=== PATIENT | male | born 1985 | race Hispanic/Latino ===

== ENCOUNTER 2021-03-23 02:50 | Emergency (ER) | payer SELFPAY ==
--- NOTE | ~2021-03-23 | CT_ITS ---
EXAMINATION: CT abdomen pelvis wo con DATE: 03/23/2021 04:19 INDICATION: Right flank pain TECHNIQUE: Computed tomography (CT) of the abdomen and pelvis was performed without intravenous contr ast. The dose-length product was 189.17 mGy-cm. Automated exposure control and iterative reconstructi on technique were employed. COMPARISON: None. FINDINGS: Dependent atelectasis. No significant pleural or pericardial effusion. Heart size normal. N o significant vascular abnormality. The liver, spleen, pancreas, adrenal glands and kidneys are unremarkable. Gallbladder is present. Non obstructive bowel gas pattern. Normal appendix. No abnormal pelvic masses or fluid collections. No fr ee air or free fluid. There is degenerative disc disease at L5-S1 no acute osseous abnormality. Small fat-containing umbilical hernia. IMPRESSION: 1. No acute abdominal abnormality. Reviewed, dictated and finalized at location A.
[2021-03-23 03:23] VITALS: BP 117/72; PULSE 73; RESP 18; TEMP 36.4; O2SAT 99
[2021-03-23 03:43] LABS: Basophils Percent Auto 0.3 % (0.2-1.2); Eosinophils Absolute Auto 0.1 K/mm3 (0-0.3); Eosinophils Percent Auto 0.8 % (0-4.4); Hematocrit 43.4 % (42.0-52.0); Hemoglobin 14.1 g/dL (14.0-18.0); Immature Granulocyte Absolute 0.02 K/mm3 (0.00-0.031); Immature Granulocyte Percent A 0.2 % (0-0.5); Lymphocytes Absolute Auto 2.11 K/mm3 (0.9-3.2); Lymphocytes Percent Auto 23.4 % (18.3-44.2); Mean Corpuscular HGB Conc 32.5 g/dl (32-36); Mean Corpuscular Hemoglobin 29.9 pg (26-34); Mean Corpuscular Volume 91.9 fl (80-100); Mean Platelet Volume 9.8 fl (7.4-10.4); Monocytes Absolute Auto 0.7 K/mm3 (0.1-0.6); Monocytes Percent Auto 8.1 % (2.6-8.5); Neutrophils Absolute Auto 6.1 K/mm3 (1.3-6.7); Neutrophils Percent Auto 67.2 % (45.5-73.1); Platelet Count Result 207 k/mm3 (150-375); Red Blood Count 4.72 M/mm3 (4.6-6.20); Red Cell Distribution Width 12.9 % (11.5-14.5)
[2021-03-23 03:51] LABS: Anion Gap 4 mmol/L (8-16); Blood Urea Nitrogen 24 mg/dL (9-20); Calcium 8.9 mg/dL (8.4-10.2); Carbon Dioxide 28 mmol/L (22-30); Chloride 100 mmol/L (98-107); Estimated CRCL calculation 66 ml/min; Estimated Glomerular Filt Rate > 60; Glucose 98 mg/dL (65-110); Potassium 4.2 mmol/L (3.4-5.0); Sodium 132 mmol/L (137-145)
--- NOTE | 2021-03-23 04:53 | ED.BACK ---
HPI - Back Pain/Injury General Chief Complaint: Back Pain/Injury Stated Complaint: back pain Time Seen by Provider: 03/23/21 03:46 Source: patient History of Present Illness HPI Narrative: Patient presents with right-sided back pain which radiates to his abdomen. Symptoms been present for the past several hours. He reports he was sitting drinking a Coke when he developed this pain. Ports getting up and walking around seems to make his pain worse denies any urinary symptoms such as dysuria or hematuria. Denies any nausea or vomiting. Denies any prior abdominal surgeries. Related Data Home Medications Medication Instructions Recorded Confirmed No Home Medications 03/23/21 03/23/21 Allergies Allergy/AdvReac Type Severity Reaction Status Date / Time No Known Allergies Allergy Verified 03/23/21 03:27 Review of Systems Review of Systems: CONSTITUTIONAL: Denies fever, chills, or sweats. EYES: Denies visual changes, redness, or discharge. ENT: Denies rhinorrhea, congestion, sore throat, or otalgia. CARDIOVASCULAR: Denies chest pain, palpitations, or edema. RESPIRATORY: Denies cough or dyspnea. GASTROINTESTINAL: Denies abdominal pain, nausea, vomiting, or diarrhea. GENITOURINARY: Denies dysuria or hematuria. SKIN: Denies rash or itching. MUSCULOSKELETAL: Denies back pain, joint pain, or myalgia. NEUROLOGIC: Denies headache, numbness, dizziness, or weakness. PSYCHIATRIC: Denies anxiety or depression. All systems reviewed & are unremarkable except as noted in HPI and below PMFSH Social History Social History Gender identity (if verbalized by the patient): Male Exam Narrative: GENERAL: Well-appearing, well-nourished, and in no acute distress. HEAD: Normocephalic, atraumatic. EYES: PERRLA and EOMI. ENT: Nares clear, no rhinorrhea or epistaxis. Mucous membranes moist. NECK: Supple. No masses. No JVD CHEST: Clear to auscultation. No respiratory distress. No wheezes rales or rhonchi HEART: Regular rate and rhythm. No murmur heard. Normal peripheral pulses. ABDOMEN: Soft, nontender, nondistended BACK: Mild tenderness to palpation along the right paraspinal muscles around L1-L2 EXTREMITIES: Normal range of motion. No edema. SKIN: Warm, dry, no rash. NEURO: No focal deficits. Alert and oriented x3. PSYCH: Normal mood and affect. Course Reevaluation(s) Reevaluation #1: Patient reports feeling much improved results and plan reviewed with patient he is comfortable with the outpatient plan. Date: 03/23/21 Time: 06:36 Vital Signs Vital signs: Vital Signs Temperature 36.4 C L 03/23/21 03:23 Pulse Rate 73 03/23/21 03:23 Respiratory Rate 18 03/23/21 03:23 Blood Pressure 117/72 03/23/21 03:23 Pulse Oximetry 99 03/23/21 03:23 Temperature 36.4 C L 03/23/21 03:23 Pulse Rate 75 03/23/21 05:57 Respiratory Rate 18 03/23/21 05:57 Blood Pressure 120/74 03/23/21 05:57 Pulse Oximetry 99 03/23/21 05:57 MDM - Back Pain/Injury MDM Narrative Medical decision making narrative: H&P as above, vss, pt looks clinically well, exam with reproducible low back pain no focal neurological deficits, labs clinically unremarkable, img clinically unremarkable, additional labs/img considered, symptomatic relief available as needed, patient treated with Toradol. On reevaluation pt continues to looks clinically well reports feeling much improved. Suspect soft tissue strain, dns ureteral stone, pyelonephritis, cauda equina, fracture, conus medullaris. plan to tx/monitor as op w/ pcm f/u findings/plan discussed with pt, pt agree/comfortable with plan, return precautions given. [employer] Diver service was used throughout this encounter Lab Data Result diagrams: 03/23/21 03:33 03/23/21 03:33 Labs: Lab Results 03/23/21 03/23/21 03/23/21 Range/Units 03:33 03:33 05:12 WBC 9.0 (4.5-10.0) K/mm3 RBC 4.72 (4.6-6.20) M/mm3 Hgb
[2021-03-23] MEDS: KETOROLAC 15 MG/ML VIAL (*BKC) IV PUSH (05:00)
[2021-03-23 05:24] LABS: Add Urine Microscopic? NO; Appearance Urine Clear (Clear); Bilirubin Urine Negative (Negative); Blood Urine Negative (Negative); Color Urine Straw (Yellow); Glucose Urine UA Negative (Negative); Ketones Urine Negative (Negative); Leukocyte Esterase Ur Negative LEU/UL (Negative); Nitrate Urine Negative (Negative); Protein Urine Negative (Negative); Specific Grav Ur 1.011 (1.001-1.035); Urobilinogen Urine Negative mg/dL (<2.0)
[2021-03-23 05:57] VITALS: BP 120/74; PULSE 75; RESP 18; O2SAT 99
== END 2021-03-23 06:51 | disposition home or self-care (01) ==
PROVIDERS: Emergency Provider Emergency Medicine
DX: S39.012A Strain of muscle, fascia and tendon of lower back, initial encounter (principal); Y33.XXXA Other specified events, undetermined intent, initial encounter
CPT/HCPCS: 36415; 74176; 80048; 81003; 85025; 96374; 99284; J1885